=== PATIENT | male | born 1970 | race Caucasian/White ===

== ENCOUNTER 2023-04-26 03:03 | Inpatient (IN) ==
[2023-04-26] MEDS ORDERED: Albuterol/Ipratropium NEB.SOL (2.5/0.5 MG) 3 ML NEB.SOLN INH ONE (03:17)
[2023-04-26 03:30] LABS: Hematocrit 47.5 % (38-53); Hemoglobin 16.3 g/dL (13.2-16.3); Mean Corpuscular Hemoglobin 32.8 pg (27-33); Mean Corpuscular Hgb Conc 34.3 g/dL (31-36); Mean Corpuscular Volume 95.8 fL (80-97); Mean Platelet Volume 8.3 fL (7.5-11.2); Platelet Count 207 10^3/uL (150-450); Red Blood Count 4.96 10^6/uL (4.06-5.63); Red Cell Distribution Width 13.3 % (12-17); White Blood Count 13.2 10^3/uL (3.6-10.2)
[2023-04-26 03:35] LABS: PCO2 Arterial 43 mmHg (35-45); PO2 Arterial 68 mmHg (80-100)
[2023-04-26] MEDS ORDERED: Lorazepam PYXIS KEY PRN (03:43)
[2023-04-26] MEDS ORDERED: LORazepam 2 mg VIAL 1 ml ONE ×2 (03:43→05:37)
[2023-04-26] MEDS ORDERED: LORazepam 2 mg VIAL 1 ml IV PUSH ONE (03:43)
[2023-04-26] MEDS ORDERED: Lactated Ringers 1000 ml BAG 1,000 ML IV ONE ×2 (03:44→03:55)
[2023-04-26 03:46] LABS: Albumin 4.8 g/dL (3.2-5.2); Albumin/Globulin Ratio 1.9 (1-3); Calcium 9.7 mg/dL (8.6-10.3); Creatinine, Serum 1.39 mg/dL (0.67-1.17); Globulin 2.5 g/dL (2-4); Magnesium 2.3 mg/dL (1.9-2.7); Potassium 3.7 mmol/L (3.5-5.0); Total Bilirubin 0.9 mg/dL (0.2-1.0); Total Protein 7.3 g/dL (6.4-8.9); eGFR CKD-EPI 60.6 (>60)
[2023-04-26 03:59] LABS: ABS Lymphocytes 0.5 10^3/uL (1.0-4.8); ABS Monocytes 0.9 10^3/uL (0.0-1.1); ABS Neutrophils 11.9 10^3/uL (1.5-7.6); ABS Nucleated RBC 0.01 10^3/ul; Lymphocyte % 3.9 %; Nucleated Red Blood Cells % 0.1 %/100WBC (0.0-0.8)
[2023-04-26 04:02] LABS: Urine Appearance Cloudy; Urine Bilirubin Negative (Negative); Urine Blood 2+ (Negative); Urine Color Yellow; Urine Glucose 3+(>=500 mg/dL) (Negative); Urine Ketones Trace (Negative); Urine Nitrite Negative (Negative); Urine Protein 2+(100 mg/dL) (Negative); Urine Specific Gravity 1.022 (1.002-1.030); Urine Urobilinogen Negative (Negative)
[2023-04-26 04:10] LABS: Urine Bacteria Absent (Absent); Urine Granular Casts Present (Absent); Urine Red Blood Cell 1+(3-5/hpf) (Absent); Urine Squamous Epithelial Cell Present (Absent); Urine White Blood Cell 1+(6-10/hpf) (Absent)
[2023-04-26 04:15] LABS: Urine Benzodiazepine Screen None Detected (None Detect); Urine Cannabinoids Screen None Detected (None Detect); Urine Opiates Screen Presumptive Positive (None Detect)
[2023-04-26 04:17] LABS: Acetaminophen < 15 mcg/mL; Alcohol, S < 13 mg/dL (<13); Salicylate < 2.50 mg/dL (<30)
[2023-04-26 04:33] LABS: TSH Ultra Thyroid Stim Horm 1.62 mcIU/mL (0.34-5.60)
[2023-04-26 05:57] LABS: High Sensitivity Troponin 1 Hr 83 pg/mL (<20)
[2023-04-26] MEDS ORDERED: Vancomycin 1,000 MG in NS 0.9% 250 ml 250 ML IVPB ONE (06:12)
[2023-04-26] MEDS ORDERED: Piperacillin/Tazobac 3.375 BAG 3.375 GM/100 ML BAG IV ONE (06:12)
[2023-04-26 06:14] LABS: Creatine Kinase 2509 U/L (10-223)
[2023-04-26] MEDS ORDERED: Iodixanol (CONTRAST) 320 MG/ML 100 ML SDV IV ONE (06:16)
[2023-04-26] MEDS ORDERED: Lactated Ringers 1000 ml BAG 2,000 ML IV ONE (06:25)
[2023-04-26 06:29] LABS: PCO2 Arterial 55 mmHg (35-45); PO2 Arterial 71 mmHg (80-100)
[2023-04-26] MEDS ORDERED: Vancomycin per Pharmacy 1 EA NOTE FOLLOW UP SCH (07:00)
[2023-04-26] MEDS ORDERED: Zosyn per Pharmacy NOTE FOLLOW UP SCH (07:00)
[2023-04-26 08:46] LABS: Resp Rate 12
[2023-04-26 08:47] LABS: PCO2 Arterial 52 mmHg (35-45); PO2 Arterial 159 mmHg (80-100)
[2023-04-26] MEDS: Enoxaparin 40 MG/0.4 ML SYR SUBCUT SCH (09:40)
[2023-04-26] MEDS: KCL 20 MEQ/100 ML IVPREMIX 20 MEQ/100 ML BAG IV SCH ×2 (11:21→13:55)
[2023-04-26] MEDS ORDERED: Naloxone 0.4 mg VIAL 0.4 mg/ml 1 ml VIAL ONE (11:52)
[2023-04-26] MEDS ORDERED: Naloxone 0.4 mg VIAL 0.4 mg/ml 1 ml VIAL IV PUSH ONE (11:56)
[2023-04-26] MEDS: Acetaminophen IV 1 GM/100ML 1,000 MG/100 ML BAG IV PRN (14:30)
[2023-04-26] MEDS: ZOSYN 3.375 GM Q8H per EXTENDED INFUSION IV SCH ×2 (14:31→23:07)
[2023-04-26] MEDS ORDERED: OLANZapine IM (NF) 10 MG VIAL IM ONE (15:53)
[2023-04-26] MEDS ORDERED: Sterile Water for Inj 10 ML ONE (15:59)
[2023-04-26] MEDS: Vancomycin 750 MG in NS 0.9% 250 ML IVPB SCH (16:54)
[2023-04-26] MEDS: Nicotine PATCH 21 MG/24 HR PATCH TRANSDERM SCH (17:03)
[2023-04-26] MEDS ORDERED: Magnesium Hydroxide LIQ 30 ML UDC PO PRN (17:43)
[2023-04-26] MEDS: Senna TAB 8.6 mg TAB PO SCH (21:47)
[2023-04-26] MEDS: Magnesium Hydroxide LIQ 30 ML UDC PO SCH (21:47)
[2023-04-26] MEDS ORDERED: oxyCODONE/Acetamin 5/325 mg TAB PO ONE (22:59)
[2023-04-27] MEDS: Acetaminophen IV 1 GM/100ML 1,000 MG/100 ML BAG IV PRN (03:45)
[2023-04-27 04:11] LABS: Hematocrit 36.4 % (38-53); Hemoglobin 12.6 g/dL (13.2-16.3); Mean Corpuscular Hemoglobin 32.9 pg (27-33); Mean Corpuscular Hgb Conc 34.5 g/dL (31-36); Mean Corpuscular Volume 95.4 fL (80-97); Mean Platelet Volume 8.4 fL (7.5-11.2); Platelet Count 107 10^3/uL (150-450); Red Blood Count 3.81 10^6/uL (4.06-5.63); Red Cell Distribution Width 13.4 % (12-17); White Blood Count 5.7 10^3/uL (3.6-10.2)
[2023-04-27] MEDS: Vancomycin 750 MG in NS 0.9% 250 ML IVPB SCH (04:25)
[2023-04-27 04:37] LABS: ABS Lymphocytes 0.7 10^3/uL (1.0-4.8); ABS Monocytes 0.2 10^3/uL (0.0-1.1); ABS Neutrophils 4.7 10^3/uL (1.5-7.6); ABS Nucleated RBC 0.01 10^3/ul; Eosinophil % 0.7 %; Lymphocyte % 12.5 %; Nucleated Red Blood Cells % 0.1 %/100WBC (0.0-0.8)
[2023-04-27 05:38] LABS: Albumin/Globulin Ratio 1.5 (1-3); Calcium 8.2 mg/dL (8.6-10.3); Creatinine, Serum 1.22 mg/dL (0.67-1.17); Magnesium 1.7 mg/dL (1.9-2.7); Potassium 3.6 mmol/L (3.5-5.0); Total Bilirubin 0.6 mg/dL (0.2-1.0); eGFR CKD-EPI 70.9 (>60)
[2023-04-27] MEDS ORDERED: Potassium Chlor 20 meq TAB.ER PO ONE (05:45)
[2023-04-27] MEDS ORDERED: Magnesium Sulfate 2 gm BAG 2 GM/50 ML BAG IVPB ONE (05:46)
[2023-04-27] MEDS: ZOSYN 3.375 GM Q8H per EXTENDED INFUSION IV SCH ×3 (07:10→17:59)
[2023-04-27] MEDS: Polyethylene Glycol 3350 17 GM PACKET PO SCH ×2 (07:58→16:09)
[2023-04-27] MEDS: Enoxaparin 40 MG/0.4 ML SYR SUBCUT SCH (11:28)
[2023-04-27] MEDS: Nicotine PATCH 21 MG/24 HR PATCH TRANSDERM SCH (11:29)
[2023-04-27] MEDS: Magnesium Hydroxide LIQ 30 ML UDC PO SCH ×2 (11:29→19:29)
[2023-04-27] MEDS: Amoxicillin/Clavul 500/125 TAB (Augmentin 500 mg tab) PO SCH ×2 (17:16→19:29)
[2023-04-27] MEDS: Senna TAB 8.6 mg TAB PO SCH (19:28)
[2023-04-28 07:11] VITALS: BP 115/73
[2023-04-28] MEDS ORDERED: Vancomycin Trough Check NOTE FOLLOW UP ONE (07:30)
[2023-04-28] MEDS: Nicotine PATCH 21 MG/24 HR PATCH TRANSDERM SCH (08:16)
[2023-04-28] MEDS: Polyethylene Glycol 3350 17 GM PACKET PO SCH (08:17)
[2023-04-28] MEDS: Enoxaparin 40 MG/0.4 ML SYR SUBCUT SCH ×2 (08:21→08:24)
[2023-04-28] MEDS ORDERED: Amoxicillin/Clavul 875/125 TAB (Augmentin 875 tab) PO SCH (09:00)
[2023-04-28] MEDS: Magnesium Hydroxide LIQ 30 ML UDC PO SCH (09:36)
[2023-04-28 13:28] LABS: Chlamydia trachomatis NAA Negative (Negative); Neisseria gonorrhoeae (GC) NAA Negative (Negative)
== END 2023-04-28 12:55 | disposition home or self-care (01) | DRG 871 ==
LOC: ED 03:03 → EDHOLD 06:38 → ICU 15:06
PROVIDERS: ADMIT Student in an Organized Health Care Education/Training Program; ATTEND Student in an Organized Health Care Education/Training Program